=== PATIENT | male | born 1980 | race Caucasian/White ===

== ENCOUNTER 2020-08-17 18:59 | Emergency (ER) | payer OTHER, SELFPAY ==
[2020-08-17 19:28] VITALS: BP 138/92; PULSE 86; RESP 16; TEMP 36.7; O2SAT 99; BMI 34.0
--- NOTE | 2020-08-17 21:13 | ECG_ITS ---
Test Reason : PALPITATIONS Blood Pressure : / mmHG Vent. Rate : 078 BPM Atrial Rate : 078 BPM P-R Int : 216 ms QRS Dur : 084 ms QT Int : 362 ms P-R-T Axes : 042 028 041 degrees QTc Int : 412 ms Sinus rhythm with 1st degree A-V block Otherwise normal ECG when compared to EKG of 10/21/15 no significant change Referred By: Joan Lundberg Electronically Signed By:SKIP HILL MD
--- NOTE | 2020-08-17 21:14 | ED.DIZZY ---
HPI - Dizziness General Chief Complaint: Headache Stated Complaint: MULTIPLE COMPLAINTS Time Seen by Provider: 08/17/20 21:12 History of Present Illness HPI Narrative: This is a 39-year-old male who presents with onset of dizziness this evening at approximately 2:00 p.m. while taking the garbage outside and characterizes this episode with graying of vision and associated nausea with the feeling of palpitations, shortness of breath, diaphoresis, but denies passing out or falling. He states that the episode lasted approximately 40 minutes and he was able to perform his normal functions until he presented to the emergency department he denies any associated speech / hearing /visual changes other than mentioned above and denies any unilateral numbness / tingling/ weakness. In addition, patient describes a one-month headache that he states comes across the right side of his head and has been evaluated and is currently being managed by his primary care provider. As per nursing documentation patient has recently stopped his antidepressant. He was tested for COVID-19 last week and was negative. Related Data Home Medications Medication Instructions Recorded Confirmed albuterol sulfate 1 puff PO Q6H PRN 08/17/20 08/17/20 buprenorphine-naloxone [Suboxone] 1 strip SUBLINGUAL BID 08/17/20 08/17/20 docusate sodium 1 cap PO BID PRN 08/17/20 08/17/20 escitalopram oxalate 1 tab PO QAM 08/17/20 08/17/20 hydroxyzine pamoate [Vistaril] See Rx Instructions .ROUTE .COMPLEX 08/17/20 08/17/20 omeprazole 1 cap PO DAILY 08/17/20 08/17/20 prazosin 1 cap PO BEDTIME 08/17/20 08/17/20 quetiapine 1 tab PO BEDTIME 08/17/20 08/17/20 Allergies Allergy/AdvReac Type Severity Reaction Status Date / Time SEAFOOD Allergy Severe ANAPHYLAXIS Uncoded 07/05/20 14:58 Review of Systems Review of Systems: Pertinent positives and negatives as stated in HPI 10 point review of systems is otherwise negative. PMFSH Past Medical History Source: nursing notes reviewed Medical History Asthma Cholecystectomy planned Migraines Social History Social History Alcohol intake: never Smoking Status: Current every day smoker Use of substances other than those prescribed or required for medical reasons: No Advance Directives: No Advance Directives Information Provided: Yes Physical Exam Vital Signs: Vital Signs: Vital Signs Temp Pulse Resp BP Pulse Ox 08/17/20 22:32 66 15 121/82 98 08/17/20 22:31 66 121/82 08/17/20 22:28 61 132/81 08/17/20 22:27 59 119/73 08/17/20 22:00 98.0 F 86 16 140/92 H 97 08/17/20 19:28 98.0 F 86 16 138/92 H 99 Body Mass Index 34.0 VITAL SIGNS: Reviewed. GENERAL: Well developed, well nourished, in no acute distress. HEAD: Normocephalic/atraumatic, EYES: PERRLA, EOMI intact without pain, no nystagmus/pallor/icterus noted EARS: Ext canals without abnormality, TMs non-bulging and non-erythematous NOSE: Nares patent bilateral OROPHARYNX: no oral lesions noted, posterior pharynx clear and non-erythematous without noted tonsillar enlargement/erythema/exudates NECK: Supple, no adenopathy LUNGS: Normal breath sounds. No adventitious sounds or accessory muscle use. SpO2<99> CARDIOVASCULAR: Regular rate and rhythm without noted murmurs, no JVD or lower extremity edema. ABDOMEN: Soft, non-tender, non-distended with bowel sounds. No rigidity. No guarding. No palpable masses or hernias noted MUSCULOSKELETAL: No tenderness, deformities, or effusions noted on gross inspection. EXTREMITIES: No cyanosis, clubbing or edema. SKIN: Inspection of the skin reveals no rashes, ulcerations, jaundice, pallor, or petechiae. NEUROLOGIC: Alert and oriented x 4. Strength and sensation to light touch were grossly intact x 4, Cranial nerves 2-12 were grossly intact and cerebellar testing is within normal limits. Course Course Course Narrative: This is a 39-year-old male with history and clinical presentation consistent with chronic headache and doubt any intracranial pathologies given length of time and current evaluation. In addition, history and clinical exam for dizziness episode is most consistent with a likely vasovagal episode, however will evaluate with EKG and laboratory studies to check for infectious or anemia. Review of lab work is negative for evidence infection or acute anemia and urinalysis is negative. Review EKG is negative for concerns regarding arrhythmia. Patient got almost complete resolution of headache with a combination of Tylenol,Toradol, and 1L of IV fluids. All of his results and findings were discussed with him at bedside and he was strongly encouraged to follow up with his primary care provider on Thursday. MDM - Dizziness Lab Data Result diagrams: 08/17/20 21:27 08/17/20 21:27 Labs: Lab Results 08/17/20 08/17/20 08/17/20 Range/Units 21:27 21:27 21:27 WBC 8.3 (4.8-10.8) X10*3/uL RBC 5.03 (4.60-5.80) X10*6/uL Hgb 13.8 L (14.0-18.0) g/dl Hct 41.3 L (42-52) % MCV 82.1 (80-98) fL MCH 27.4 (27.0-33.0) pg MCHC 33.4 (31.0-36.0) g/dl RDW 12.3 (11.0-16.0) % Plt Count 192 (160-400) X10*3/uL MPV 10.3 (9.4-12.4) fL Immature Gran % (Auto) 0.2 (0.0-0.4) % Neut % (Auto) 62.4 (45-73) % Lymph % (Auto) 28.2 (20-40) % [place] % (Auto) 6.5 (2-11) % Eos % (Auto) 2.2 (0-4) % Baso % (Auto) 0.5 (0-2) % Lymph # (Auto) 2.4 (1.2-4.9) X10*3/uL [place] # (Auto) 0.5 (0.1-1.2) X10*3/uL Eos # (Auto) 0.2 (0.0-0.4) X10*3/uL Baso # (Auto) 0.0 (0.0-0.2) X10*3/uL Abs Immat Gran (auto) 0.02 (0.00-0.03) X10*3/uL Absolute Neuts (auto) 5.2 (2.0-8.3) X10*3/uL Absolute Nucleated RBC 0.000 (0.0-0.012) X10*3/uL Nucleated RBC % (auto) 0.0 (0.0-0.2) /100WBC Smear Tech's Comments VERIFIED Sodium Cancelled Potassium Cancelled Chloride Cancelled Carbon Dioxide Cancelled Anion Gap Cancelled BUN Cancelled Creatinine Cancelled Estim Creat Clear Calc Cancelled Estimated GFR Cancelled Random Glucose Cancelled Calcium Cancelled Total Bilirubin Cancelled AST Cancelled ALT Cancelled Alkaline Phosphatase Cancelled Total Protein Cancelled Albumin Cancelled Urine Color YELLOW Urine Appearance CLOUDY Urine pH 7.5 (5.0-8.0) Ur Specific [place] 1.015 (1.005-1.025) Urine Protein TRACE (NEG-TRACE) MG/DL Urine Glucose (UA) NEG (NEG) MG/DL Urine Ketones NEG (NEG) MG/DL Urine Blood NEG (NEG) Urine Nitrite NEG (NEG) Ur Leukocyte Esterase NEG (NEG) ECG Data Attestation: I personally reviewed and interpreted this ECG as follows: Prior ECG tracings: available for review ( 10/21/2015, first-degree AV block is new) Interpretation: Normal sinus rhythm, first-degree AV block with ND- 216, HR-78, QRS/QTC are within normal limits and no evidence of acute ischemia Discharge Plan Discharge Clinical Impression: Vasovagal near syncope Headache Qualifiers: Headache type: unspecified Headache chronicity pattern: chronic headache Intractability: not intractable Qualified Code(s): R51.9 - Headache, unspecified Patient Disposition: Home, Self-Care Instructions: Near Syncope (ED), General Headache (ED) Additional Instructions: 1. Tylenol 1000 mg, orally, every 6 hours as needed for headache. Do not exceed 4000 mg within 24 hours. 2. Ibuprofen 400 mg, orally with milk or food, every 6 hours as needed for headache. The patient and/or family acknowledge understanding of results (as applicable), diagnosis, treatment plan, need for follow up, and symptoms that should prompt a return to the emergency room. Prescriptions: No Action prazosin 1 mg capsule 1 cap PO BEDTIME RF: 0 hydroxyzine pamoate [Vistaril] 50 mg capsule See Rx Instructions .ROUTE .COMPLEX RF: 0 docusate sodium 100 mg capsule 1 cap PO BID PRN (Reason: constipation) RF: 0 omeprazole 20 mg capsule,delayed release(DR/EC) 1 cap PO DAILY RF: 0 albuterol sulfate 90 mcg/actuation HFA aerosol inhaler 1 puff PO Q6H PRN (Reason: wheezing) RF: 0 escitalopram oxalate 5 mg tablet 1 tab PO QAM RF: 0 quetiapine 50 mg tablet 1 tab PO BEDTIME RF: 0 buprenorphine-naloxone [Suboxone] 8-2 mg film 1 strip sublingual BID RF: 0 Referrals: Geraldo Keita MD [Primary Care Provider] - 2 days ( Further management regarding chronic headache)
[2020-08-17 21:37] LABS: Glucose Urine UA NEG (NEG); Leukocyte Esterase Urine NEG (NEG); Nitrite Urine NEG (NEG); PH 7.5 (5.0-8.0); Specific Gravity - Urine 1.015 (1.005-1.025); Urine Blood NEG (NEG); Urine Ketones NEG (NEG); Urine Protein TRACE MG/DL (NEG-TRACE)
[2020-08-17 21:41] LABS: Appearance Urine CLOUDY; Color Urine YELLOW
[2020-08-17] MEDS: 0.9 % Sodium Chloride 1,000 ML 1000 ML IV (21:48)
[2020-08-17] MEDS: Ketorolac Tromethamine 15 MG/ML VIAL IVPUSH (21:48)
[2020-08-17] MEDS: Acetaminophen 325 MG TABLET 975 MG PO (21:49)
[2020-08-17 22:00] VITALS: BP 140/92; PULSE 86; RESP 16; TEMP 36.7; O2SAT 97
[2020-08-17 22:06] LABS: MANUAL DIFF FLAG SCAN; PLT CLUMP 1; Red Cell Distribution Width 12.3 % (11.0-16.0); SCAN SMEAR FLAG 1
[2020-08-17 22:07] LABS: Basophils Percent Auto 0.5 % (0-2); Eosinophils Absolute Auto 0.2 X10*3/uL (0.0-0.4); Eosinophils Percent Auto 2.2 % (0-4); Hematocrit 41.3 % (42-52); Hemoglobin 13.8 g/dl (14.0-18.0); Imm Gran Abs Auto 0.02 X10*3/uL (0.00-0.03); Imm Gran Pct Auto 0.2 % (0.0-0.4); Lymphocytes Absolute Auto 2.4 X10*3/uL (1.2-4.9); Lymphocytes Percent Auto 28.2 % (20-40); Mean Corpuscular HGB Conc 33.4 g/dl (31.0-36.0); Mean Corpuscular Hemoglobin 27.4 pg (27.0-33.0); Mean Corpuscular Volume 82.1 fL (80-98); Mean Platelet Volume 10.3 fL (9.4-12.4); Monocytes Absolute Auto 0.5 X10*3/uL (0.1-1.2); Monocytes Percent Auto 6.5 % (2-11); Neutrophils Absolute Auto 5.2 X10*3/uL (2.0-8.3); Neutrophils Percent Auto 62.4 % (45-73); Platelet Count 192 X10*3/uL (160-400); Red Blood Count 5.03 X10*6/uL (4.60-5.80); White Blood Count 8.3 X10*3/uL (4.8-10.8)
[2020-08-17 22:08] LABS: SLIDE REVIEW VERIFIED
[2020-08-17 22:27] VITALS: BP 119/73; PULSE 59
[2020-08-17 22:28] VITALS: BP 132/81; PULSE 61
[2020-08-17 22:31] VITALS: BP 121/82; PULSE 66
[2020-08-17 22:32] VITALS: BP 121/82; PULSE 66; RESP 15; O2SAT 98
== END 2020-08-17 23:59 | disposition home or self-care (01) ==
PROVIDERS: Emergency Provider Student in an Organized Health Care Education/Training Program; PCP Internal Medicine
DX: R55 Syncope and collapse (principal); R51.9 Headache, unspecified; F17.200 Nicotine dependence, unspecified, uncomplicated; Z71.6 Tobacco abuse counseling; Z79.899 Other long term (current) drug therapy
CPT/HCPCS: 36415; 81003; 85025; 93005; 96361; 96374; 99284; J1885

== ENCOUNTER 2020-09-09 15:30 | Emergency (ER) | payer OTHER, SELFPAY ==
--- NOTE | 2020-09-09 16:29 | ED.HA ---
HPI - Headache General Chief Complaint: Headache Stated Complaint: Headache Time Seen by Provider: 09/09/20 16:29 Source: patient Mode of arrival: ambulatory Limitations: no limitations History of Present Illness HPI Narrative: patient has history of migraine headache complaining of headache for last 1 month been here 1 time evaluated unable to follow-up with PCP still complaining of increased headache with photosensitivity denied any nausea patient does have a history of migraine and does get this kind of headache often MD elicited complaint: migraine Related Data Home Medications Medication Instructions Recorded Confirmed albuterol sulfate 1 puff PO Q6H PRN 08/17/20 08/17/20 buprenorphine-naloxone [Suboxone] 1 strip SUBLINGUAL BID 08/17/20 08/17/20 docusate sodium 1 cap PO BID PRN 08/17/20 08/17/20 escitalopram oxalate 1 tab PO QAM 08/17/20 08/17/20 hydroxyzine pamoate [Vistaril] See Rx Instructions .ROUTE .COMPLEX 08/17/20 08/17/20 omeprazole 1 cap PO DAILY 08/17/20 08/17/20 prazosin 1 cap PO BEDTIME 08/17/20 08/17/20 quetiapine 1 tab PO BEDTIME 08/17/20 08/17/20 Previous Rx's Medication Instructions Recorded [id number]-[id number] 1 cap PO Q6H PRN #20 cap 09/09/20 [Fioricet] sumatriptan succinate [Imitrex] 50 mg PO Q2H PRN #10 tab 09/09/20 Allergies Allergy/AdvReac Type Severity Reaction Status Date / Time SEAFOOD Allergy Severe ANAPHYLAXIS Uncoded 07/05/20 14:58 Review of Systems Review of Systems: REVIEW OF SYSTEMS: Pertinent positives and negatives are stated above in the history. GEN: no fevers, chills, fatigue HEENT: no nasal congestion, sore throat, ear pain NEURO: no dizziness, focal weakness PULM: no cough, shortness of breath CV: no chest pain, palpitations, LE edema ABD: no abdominal pain, nausea, vomiting, diarrhea : no dysuria, urgency, frequency SKIN: no rash ROS otherwise negative x 10 PMFSH Past Medical History Medical History Asthma Cholecystectomy planned Migraines Social History Social History Alcohol intake: never Smoking Status: Current every day smoker Advance Directives: No Advance Directives Information Provided: Yes Physical Exam Vital Signs: Vital Signs: Last Vital Signs Temp 97.8 F 09/09/20 16:33 Pulse 75 09/09/20 16:33 Resp 16 09/09/20 16:33 BP 130/77 09/09/20 16:33 Pulse Ox 97 09/09/20 16:33 Body Mass Index 33.0 Appearance: Alert. Oriented X3. No acute distress. Eyes: Pupils equal, round and reactive to light. ENT: Pharynx normal. no sinus tenderness no temporal artery tenderness no scalp tenderness Neck: Normal inspection. Neck supple. CVS: Normal heart rate and rhythm. Pulses normal. Respiratory: No respiratory distress. Breath sounds normal. Abdomen: Soft and nontender. Skin: Skin warm and dry. Normal skin color. Normal skin turgor. Extremities: No lower extremity edema. Good range of movement Neuro: Oriented X 3. No motor deficit. No sensory deficit. Course Course Course Narrative: patient feeling better after Imitrex will discharge him on Imitrex tablets and Fioricet Discharge Plan Discharge Clinical Impression: Migraine Patient Disposition: Home, Self-Care Instructions: Migraine Headache (ED) Additional Instructions: take Imitrex and Fioricet at advised for headaches and follow with PCP Prescriptions: New sumatriptan succinate [Imitrex] 50 mg tablet 50 mg PO Q2H PRN (Reason: migraine headache) Qty: 10 RF: 0 rvzzkxxyzg-mgvbfpngxlhko-hyyi [Fioricet] 50-300-40 mg capsule 1 cap PO Q6H PRN (Reason: pain) Qty: 20 RF: 0 No Action prazosin 1 mg capsule 1 cap PO BEDTIME RF: 0 hydroxyzine pamoate [Vistaril] 50 mg capsule See Rx Instructions .ROUTE .COMPLEX RF: 0 docusate sodium 100 mg capsule 1 cap PO BID PRN (Reason: constipation) RF: 0 omeprazole 20 mg capsule,delayed release(DR/EC) 1 cap PO DAILY RF: 0 albuterol sulfate 90 mcg/actuation HFA aerosol inhaler 1 puff PO Q6H PRN (Reason: wheezing) RF: 0 escitalopram oxalate 5 mg tablet 1 tab PO QAM RF: 0 quetiapine 50 mg tablet 1 tab PO BEDTIME RF: 0 buprenorphine-naloxone [Suboxone] 8-2 mg film 1 strip sublingual BID RF: 0 Interventions: ED Discharge Assessment Last Done: 09/09/20 19:05 Discharge Date/Time: 09/09/20 18:30
[2020-09-09 16:33] VITALS: BP 130/77; PULSE 75; RESP 16; TEMP 36.6; O2SAT 97; BMI 33.0
== END 2020-09-09 18:30 | disposition home or self-care (01) ==
PROVIDERS: Emergency Provider Internal Medicine; PCP Internal Medicine
DX: G43.909 Migraine, unspecified, not intractable, without status migrainosus (principal); Z79.899 Other long term (current) drug therapy; F17.200 Nicotine dependence, unspecified, uncomplicated; Z71.6 Tobacco abuse counseling
CPT/HCPCS: 96372; 99283; 99284; J3030

== ENCOUNTER 2021-03-01 11:44 | Emergency (ER) | payer OTHER, SELFPAY ==
--- NOTE | ~2021-03-01 | XR_ITS ---
EXAMINATION: XR CHEST CLINICAL INFORMATION: Wheezing COMPARISON: Previous chest x-ray October 2015 TECHNIQUE: Frontal view of the chest was obtained. FINDINGS: The cardiac and mediastinal contours are normal. The lungs are clear. There is no pleural effusion or pneumothorax. There are degenerative changes of the spine. XR/XR chest 1V IMPRESSION: No evidence for acute disease in the chest.
[2021-03-01 11:47] VITALS: BP 131/84; PULSE 80; RESP 18; TEMP 36.4; O2SAT 95; BMI 33.0
--- NOTE | 2021-03-01 12:03 | ED.SOB ---
HPI - SOB/Dyspnea General Chief Complaint: Dyspnea Stated Complaint: WHEEZING Time Seen by Provider: 03/01/21 12:02 Source: patient Mode of arrival: ambulatory Limitations: no limitations History of Present Illness HPI Narrative: 40 y/o male with history of mild intermittent asthma, migraines, substance abuse on Suboxone who presents to the ED with 4 days of wheezing. He states he has been using his albuterol inhaler multiple times per day with no improvement. He has mild SOB but it is mostly the wheezing that is bothering him. He is not coughing, has no fever, chills, N/V abdominal pain. He had some chest discomfort the other day that went away on his own. He states his asthma gets exacerbated by his seasonal allergies and he has been taking Claritin. He was last hospitalized for his asthma several years ago and when he was an infant he required mechanical ventilation. He states his asthma has gotten much better over the years. He received 1 dose of COVID vaccine and is due for his next shot next week. No known sick contact. MD elicited complaint: asthma attack Pertinent past history: asthma Onset (ago): day(s) (4) Context: allergen exposure Timing: constant and progressively worsening Severity: moderate Exacerbating factors: inspiration and allergies Relieving factors: rest and bronchodilators Known history of: asthma Associated symptoms: wheezing Treatment prior to arrival: none Related Data Home Medications Medication Instructions Recorded Confirmed albuterol sulfate 1 puff PO Q6H PRN 08/17/20 08/17/20 buprenorphine-naloxone [Suboxone] 1 strip SUBLINGUAL BID 08/17/20 08/17/20 docusate sodium 1 cap PO BID PRN 08/17/20 08/17/20 escitalopram oxalate 1 tab PO QAM 08/17/20 08/17/20 hydroxyzine pamoate [Vistaril] See Rx Instructions .ROUTE .COMPLEX 08/17/20 08/17/20 omeprazole 1 cap PO DAILY 08/17/20 08/17/20 prazosin 1 cap PO BEDTIME 08/17/20 08/17/20 quetiapine 1 tab PO BEDTIME 08/17/20 08/17/20 Previous Rx's Medication Instructions Recorded [id number]-jxwzferkdxwgf-[id number] 1 cap PO Q6H PRN #20 cap 09/09/20 [Fioricet] sumatriptan succinate [Imitrex] 50 mg PO Q2H PRN #10 tab 09/09/20 azithromycin [Zithromax Z-Greg] See Rx Instructions PO .COMPLEX #6 03/01/21 tab prednisone 10 mg PO PER PKG DIR #48 ea 03/01/21 Allergies Allergy/AdvReac Type Severity Reaction Status Date / Time SEAFOOD Allergy Severe ANAPHYLAXIS Uncoded 07/05/20 14:58 Review of Systems Review of Systems: Constitutional: No Fever, No Chills ENT/Mouth: No sore throat, No Rhinorrhea, No Swallowing Difficulty Eyes: No Eye Pain, No Swelling, + Redness, +watery eyes Cardiovascular: No Chest Pain, + SOB, No Orthopnea, No Edema Respiratory: No Cough, No Sputum, + Wheezing, No dyspnea Gastrointestinal: No Nausea, No Vomiting, No Diarrhea, No abdominal Pain Musculoskeletal: No joint pain, No Myalgias Skin: No Skin Lesions, No rash Neuro: No Weakness, No Numbness, No Dizziness, No Headache Heme/Lymph: No Bruising, No Lymphadenopathy PMFSH Past Medical History Attestation statement: The following information was validated with the patient. Medical History Asthma Cholecystectomy planned Migraines Social History Social History Alcohol intake: never Smoking Status: Current every day smoker Advance Directives: No Advance Directives Information Provided: Yes Physical Exam Vital Signs: Vital Signs: Last Vital Signs Temp 97.6 F 03/01/21 11:47 Pulse 81 03/01/21 12:34 Resp 18 03/01/21 11:47 BP 131/84 03/01/21 11:47 Pulse Ox 95 03/01/21 11:47 Body Mass Index 33.0 Appearance: Alert. Oriented X3. No acute distress. Eyes: Pupils equal, round and reactive to light. ENT: Pharynx normal. Neck: Normal inspection. Neck supple. CVS: Normal heart rate and rhythm. Pulses normal. Respiratory: No respiratory distress. Speaks in full sentences, expiratory wheezes throughout with right basilar rhonchi Abdomen: Soft and nontender. +BS x4 Skin: Skin warm and dry. Normal skin color. Normal skin turgor. No rashes. Extremities: No lower extremity edema. hair loss of distal LE with varicose veins bilaterally. Neuro: Oriented X 3. No motor deficit. No sensory deficit. Course Course Course Narrative: 40 y/o male with history of asthma presenting with 4 days of wheezing. Likely exacerbated by seasonal allergies. On arrival he is non-toxic appearing. SpO2 94-95%. Expiratory wheezes throughout. Will plan to given albuterol neb, prednisone. Will check CXR and EKG. Patient agreeable with plan. Anticipate d/c home. Reevaluation(s) Reevaluation #1: Much improved after nebullizer treatment and prednisone. CXR negative. EKG unremarkable. He is stable for d/c home with prednisone taper and z-greg. Patient agreeable with plan. MDM - SOB/Dyspnea Differential Diagnosis Differential diagnosis: Likely congestive heart failure, asthma with exacerbation and pleural effusion Medical Records Attestation: I reviewed the patient's medical records. ECG Data Attestation: I personally reviewed and interpreted this ECG as follows: ECG interpretation date: 03/01/21 ECG interpretation time: 12:45 Interpretation: normal sinus rhythm, HR 72 bpm, normal NV interval, normal QTc, no ST segment elevations or depressions. Critical Care Time Critical Care Time Critical Care Time: No Discharge Plan Discharge Clinical Impression: Asthma with exacerbation Qualifiers: Asthma severity: mild Asthma persistence: intermittent Qualified Code(s): J45.21 - Mild intermittent asthma with (acute) exacerbation Patient Disposition: Home, Self-Care Instructions: Asthma (ED), Bronchospasm (ED) Additional Instructions: Your EKG today was normal. Your chest x-ray was normal. Take the prescribed streroid taper as prescribed - start taking tomorrow. You were given the 1st dose in the ER today. Take the prescribed antibiotic starting today. Continue to use your albuterol inhaler as needed for shortness of breath. Follow up with your doctor next week. If you have worsening symptoms come back to the ER for further evaluation. Prescriptions: New prednisone 10 mg tablets,dose pack 10 mg PO PER PKG DIR Qty: 48 RF: 0 azithromycin [Zithromax Z-Greg] 250 mg tablet See Rx Instructions PO .COMPLEX Qty: 6 RF: 0 No Action sumatriptan succinate [Imitrex] 50 mg tablet 50 mg PO Q2H PRN (Reason: migraine headache) Qty: 10 RF: 0 pvivinqenf-dtcznszapzlwq-ahrx [Fioricet] 50-300-40 mg capsule 1 cap PO Q6H PRN (Reason: pain) Qty: 20 RF: 0 prazosin 1 mg capsule 1 cap PO BEDTIME RF: 0 hydroxyzine pamoate [Vistaril] 50 mg capsule See Rx Instructions .ROUTE .COMPLEX RF: 0 docusate sodium 100 mg capsule 1 cap PO BID PRN (Reason: constipation) RF: 0 omeprazole 20 mg capsule,delayed release(DR/EC) 1 cap PO DAILY RF: 0 albuterol sulfate 90 mcg/actuation HFA aerosol inhaler 1 puff PO Q6H PRN (Reason: wheezing) RF: 0 escitalopram oxalate 5 mg tablet 1 tab PO QAM RF: 0 quetiapine 50 mg tablet 1 tab PO BEDTIME RF: 0 buprenorphine-naloxone [Suboxone] 8-2 mg film 1 strip sublingual BID RF: 0 Interventions: ED Discharge Assessment Last Done: 03/01/21 13:56 Discharge Date/Time: 03/01/21 13:57
--- NOTE | 2021-03-01 12:10 | ECG_ITS ---
Test Reason : SHORT OF BREATH Blood Pressure : / mmHG Vent. Rate : 072 BPM Atrial Rate : 072 BPM P-R Int : 178 ms QRS Dur : 082 ms QT Int : 380 ms P-R-T Axes : 026 031 030 degrees QTc Int : 416 ms Normal sinus rhythm Normal ECG When compared with ECG of 17-AUG-2020 20:27, NV interval has decreased Referred By: Marisela Monique Electronically Signed By:Gerry Meza
[2021-03-01] MEDS: Albuterol Sulfate (0.083%) 2.5 MG/3 ML VIAL.NEB 10 MG INHALE (12:30)
[2021-03-01 12:34] VITALS: PULSE 81; O2SAT 94
[2021-03-01] MEDS: predniSONE 20 MG TABLET 60 MG PO (13:14)
== END 2021-03-01 13:57 | disposition home or self-care (01) ==
PROVIDERS: Emergency Provider Emergency Medicine; PCP Internal Medicine
DX: J45.21 Mild intermittent asthma with (acute) exacerbation (principal); Z79.899 Other long term (current) drug therapy
CPT/HCPCS: 71045; 93005; 94640; 94644; 99283

== ENCOUNTER 2021-05-15 21:39 | Emergency (ER) | payer OTHER, SELFPAY ==
[2021-05-15 21:43] VITALS: BP 125/79; PULSE 82; RESP 18; TEMP 36.8; O2SAT 97; BMI 35.5
[2021-05-15 23:07] LABS: Basophils Absolute Auto 0.1 X10*3/uL (0.0-0.2); Basophils Percent Auto 0.8 % (0-2); Eosinophils Absolute Auto 0.2 X10*3/uL (0.0-0.4); Eosinophils Percent Auto 2.9 % (0-4); Hematocrit 42.5 % (42-52); Hemoglobin 14.1 g/dl (14.0-18.0); Imm Gran Abs Auto 0.02 X10*3/uL (0.00-0.03); Imm Gran Pct Auto 0.3 % (0.0-0.4); Lymphocytes Absolute Auto 2.3 X10*3/uL (1.2-4.9); Lymphocytes Percent Auto 34.8 % (20-40); MANUAL DIFF FLAG NO; Mean Corpuscular HGB Conc 33.2 g/dl (31.0-36.0); Mean Corpuscular Hemoglobin 27.6 pg (27.0-33.0); Mean Corpuscular Volume 83.3 fL (80-98); Mean Platelet Volume 9.3 fL (9.4-12.4); Monocytes Absolute Auto 0.6 X10*3/uL (0.1-1.2); Monocytes Percent Auto 9.8 % (2-11); Neutrophils Absolute Auto 3.4 X10*3/uL (2.0-8.3); Neutrophils Percent Auto 51.4 % (45-73); Platelet Count 285 X10*3/uL (160-400); Red Cell Distribution Width 12.2 % (11.0-16.0); White Blood Count 6.5 X10*3/uL (4.8-10.8)
[2021-05-15 23:25] LABS: Glucose Urine UA NEG (NEG); Leukocyte Esterase Urine NEG (NEG); Nitrite Urine NEG (NEG); Specific Gravity - Urine >= 1.030 (1.005-1.025); Urine Blood NEG (NEG); Urine Ketones NEG (NEG); Urine Protein NEG (NEG-TRACE)
[2021-05-15 23:27] LABS: Appearance Urine CLEAR; Color Urine YELLOW
[2021-05-15 23:29] LABS: Anion Gap 10 (12-20); Blood Urea Nitrogen 11 mg/dL (9-16); Calcium 9.6 mg/dL (8.4-10.2); Carbon Dioxide 29 mmol/L (22-29); Chloride 105 mmol/L (96-108); Creatinine Clr Calc Pharmacy 143.1; Estimated Glomerular Filt Rate > 60; Glucose Random 78 mg/dL (60-115); Sodium 140 mmol/L (135-145)
--- NOTE | 2021-05-16 00:43 | PC.NURSE ---
AT BEDSIDE WITH PT. PT AWAITING IV AND NS.
[2021-05-16] MEDS: 0.9 % Sodium Chloride 1,000 ML 999 ML IV ×2 (01:07)
--- NOTE | 2021-05-16 01:44 | ED.GENADULT ---
HPI - General Adult General Chief complaint: General Medical Stated complaint: PT feels fatigued for a week Time Seen by Provider: 05/16/21 00:03 Source: patient Mode of arrival: ambulatory Limitations: no limitations History of Present Illness HPI narrative: 40-year-old male who presents emergency department for evaluation of fatigue, weakness, and nausea. The patient states that he has not been feeling well for about 1 week. He states that his symptoms have been constant and are getting worse. He states he has had similar symptoms in the past when he has been dehydrated. He states that he has been drinking fluid but secondary to the hot weather he believes that he has not been able to keep up with his fluid needs. He denied fever, chills, chest pain, shortness of breath, abdominal pain, his bowel movements, frequency, urgency or dysuria. Related Data Home Medications Medication Instructions Recorded Confirmed albuterol sulfate 90 mcg/actuation 1 puff PO Q6H PRN 08/17/20 08/17/20 aerosol inhaler buprenorphine 8 mg-naloxone 2 mg 1 strip SUBLINGUAL BID 08/17/20 08/17/20 sublingual film (Suboxone) docusate sodium 100 mg capsule 1 cap PO BID PRN 08/17/20 08/17/20 escitalopram oxalate 5 mg tablet 1 tab PO QAM 08/17/20 08/17/20 hydroxyzine pamoate 50 mg capsule See Rx Instructions .ROUTE .COMPLEX 08/17/20 08/17/20 (Vistaril) omeprazole 20 mg capsule,delayed 1 cap PO DAILY 08/17/20 08/17/20 release prazosin 1 mg capsule 1 cap PO BEDTIME 08/17/20 08/17/20 quetiapine 50 mg tablet 1 tab PO BEDTIME 08/17/20 08/17/20 Previous Rx's Medication Instructions Recorded [id number] 1 cap PO Q6H PRN #20 cap 09/09/20 50 mg-300 mg-40 mg capsule (Fioricet) sumatriptan succinate 50 mg tablet 50 mg PO Q2H PRN #10 tab 09/09/20 (Imitrex) azithromycin 250 mg tablet See Rx Instructions PO .COMPLEX #6 03/01/21 (Zithromax Z-Greg) tab prednisone 10 mg tablets in a dose 10 mg PO PER PKG DIR #48 ea 03/01/21 pack Allergies Allergy/AdvReac Type Severity Reaction Status Date / Time SEAFOOD Allergy Severe ANAPHYLAXIS Uncoded 05/15/21 21:43 Review of Systems Review of Systems: Yes all other systems are reviewed and are negative [facility] Past Medical History [facility] Narrative: Social history: He denies tobacco use, alcohol use and drug use. Medical History Asthma Cholecystectomy planned Migraines Social History Social History Alcohol intake: never Advance Directives: No Advance Directives Information Provided: No Physical Exam Vital Signs: Vital Signs: Last Vital Signs Temp 98.2 F 05/15/21 21:43 Pulse 82 05/15/21 21:43 Resp 18 05/15/21 21:43 BP 125/79 05/15/21 21:43 Pulse Ox 97 05/15/21 21:43 Body Mass Index 35.5 Const: General: cooperative and healthy appearing Orientation/consciousness: oriented to person and oriented to place Limitations: no limitations HENMT: Head: Yes normal to inspection, Yes normocephalic and Yes atraumatic Ears: external ears normal General nose exam: Normal external nose present Face and sinus: Yes normal facial exam Mouth: Normal oral and palatal mucosa present Throat: Yes posterior oropharynx normal Eyes: Periorbital: periorbital findings normal Eyelids: Yes eyelids normal Conjunctivae: conjunctivae normal Sclerae: sclerae normal Corneas: corneas normal Pupils: Equal, round and reactive pupils present Direct Ophthalmoscopy: normal light reflex Neck: Neck: Yes full ROM, Yes no lymphadenopathy, Yes no meningeal signs, Yes trachea midline and Yes supple Chest: Chest palpation & inspection: normal inspection of the chest and normal palpation of entire chest wall Resp: Effort & Inspection: normal respiratory effort and able to speak in complete sentences Auscultation: clear to auscultation bilaterally Cardio: Rate: regular rate Rhythm: regular rhythm Heart sounds: S1 normal heart sound present, S2 normal heart sound present and no murmurs GI: Inspection: Yes normal to inspection Palpation (GI): Soft to palpation, nontender, no guarding, not rigid and No hepatosplenomegaly present : General: Yes no CVA tenderness Back/Spine/Pelvis: Back: no CVA tenderness Cervical Spine: normal cervical lordosis Thoracic/Lumbar Spine: thoracic and lumbar spine normal to inspection Skin: Lesions: no lesions Rashes: no rashes Wounds: no wounds Neuro: General: oriented to person, oriented to place and no meningeal signs Cranial nerves: Yes CN's II-XII intact bilaterally and Yes Equal, round and reactive pupils present Cognition (Neuro): normal cognition Motor exam (neuro): 5/5 motor strength present throughout Extrem: General: Yes normal to inspection and Yes full ROM Psych: Appearance: well kempt Mental Status: mental status grossly normal Speech and movement: Normal speech and movement present Affect: normal affect Attitude: cooperative Thought process: Normal thought process present Thought content: Normal thought content present Course Course Course Narrative: 40-year-old male who presents emergency department for evaluation of fatigue, weakness, nausea x1 week. Vital signs were normal. Patient's physical examination was unremarkable. CBC, CMP were unremarkable. Urinalysis revealed concentrated urine but otherwise was negative. Patient's presentation is consistent with dehydration. He was ordered to get normal saline IV x2 L and he will be discharged home after completing his IV fluid. Medical Decision Making Lab Data Result diagrams: 05/15/21 22:55 05/15/21 22:55 Labs: Lab Results 05/15/21 05/15/21 05/15/21 Range/Units 22:55 22:55 23:17 WBC 6.5 (4.8-10.8) X10*3/uL RBC 5.10 (4.60-5.80) X10*6/uL Hgb 14.1 (14.0-18.0) g/dl Hct 42.5 (42-52) % MCV 83.3 (80-98) fL MCH 27.6 (27.0-33.0) pg MCHC 33.2 (31.0-36.0) g/dl RDW 12.2 (11.0-16.0) % Plt Count 285 D (160-400) X10*3/uL MPV 9.3 L (9.4-12.4) fL Immature Gran % (Auto) 0.3 (0.0-0.4) % Neut % (Auto) 51.4 (45-73) % Lymph % (Auto) 34.8 (20-40) % [place] % (Auto) 9.8 (2-11) % Eos % (Auto) 2.9 (0-4) % Baso % (Auto) 0.8 (0-2) % Lymph # (Auto) 2.3 (1.2-4.9) X10*3/uL [place] # (Auto) 0.6 (0.1-1.2) X10*3/uL Eos # (Auto) 0.2 (0.0-0.4) X10*3/uL Baso # (Auto) 0.1 (0.0-0.2) X10*3/uL Abs Immat Gran (auto) 0.02 (0.00-0.03) X10*3/uL Absolute Neuts (auto) 3.4 (2.0-8.3) X10*3/uL Absolute Nucleated RBC 0.000 (0.0-0.012) X10*3/uL Nucleated RBC % (auto) 0.0 (0.0-0.2) /100WBC Sodium 140 (135-145) mmol/L Potassium 4.0 (3.3-5.1) mmol/L Chloride 105 (96-108) mmol/L Carbon Dioxide 29 (22-29) mmol/L Anion Gap 10 L (12-20) BUN 11 (9-16) mg/dL Creatinine 0.92 (0.5-1.4) mg/dL Estim Creat Clear Calc 143.1 Estimated GFR > 60 Random Glucose 78 (60-115) mg/dL Calcium 9.6 (8.4-10.2) mg/dL Urine Color YELLOW Urine Appearance CLEAR Urine pH 6.0 (5.0-8.0) Ur Specific [place] >= 1.030 H (1.005-1.025) Urine Protein NEG (NEG-TRACE) MG/DL Urine Glucose (UA) NEG (NEG) MG/DL Urine Ketones NEG (NEG) MG/DL Urine Blood NEG (NEG) Urine Nitrite NEG (NEG) Ur Leukocyte Esterase NEG (NEG) Discharge Plan Discharge Clinical Impression: Nausea, Acute dehydration Fatigue Qualifiers: Fatigue type: unspecified Qualified Code(s): R53.83 - Other fatigue Patient Disposition: Home, Self-Care Instructions: Dehydration (ED) Additional Instructions: Your treated with normal saline x2 L IV. Follow-up with your doctor in 2 days. Please return to the emergency department if your symptoms get worse or if you develop any symptoms that are concerning to you. Prescriptions: No Action sumatriptan succinate [Imitrex] 50 mg tablet 50 mg PO Q2H PRN (Reason: migraine headache) Qty: 10 RF: 0 [id number]-[id number] [Fioricet] 50-300-40 mg capsule 1 cap PO Q6H PRN (Reason: pain) Qty: 20 RF: 0 prazosin 1 mg capsule 1 cap PO BEDTIME RF: 0 hydroxyzine pamoate [Vistaril] 50 mg capsule See Rx Instructions .ROUTE .COMPLEX RF: 0 docusate sodium 100 mg capsule 1 cap PO BID PRN (Reason: constipation) RF: 0 omeprazole 20 mg capsule,delayed release(DR/EC) 1 cap PO DAILY RF: 0 albuterol sulfate 90 mcg/actuation HFA aerosol inhaler 1 puff PO Q6H PRN (Reason: wheezing) RF: 0 escitalopram oxalate 5 mg tablet 1 tab PO QAM RF: 0 quetiapine 50 mg tablet 1 tab PO BEDTIME RF: 0 buprenorphine-naloxone [Suboxone] 8-2 mg film 1 strip sublingual BID RF: 0 prednisone 10 mg tablets,dose pack 10 mg PO PER PKG DIR Qty: 48 RF: 0 azithromycin [Zithromax Z-Greg] 250 mg tablet See Rx Instructions PO .COMPLEX Qty: 6 RF: 0
== END 2021-05-16 02:20 | disposition home or self-care (01) ==
PROVIDERS: Emergency Provider Emergency Medicine Emergency Medical Services; PCP Internal Medicine
DX: E86.0 Dehydration (principal); R53.83 Other fatigue; Z79.899 Other long term (current) drug therapy
CPT/HCPCS: 36415; 80048; 81003; 85025; 99283